=== PATIENT | male | born 1960 | race Caucasian/White ===

== ENCOUNTER 2019-09-11 13:50 | Outpatient (CLI) | payer OTHER ==
--- NOTE | 2019-09-11 14:25 | RAD ---
EXAM: Two views chest PROVIDED CLINICAL HISTORY: Cough and shortness of breath COMPARISON: None FINDINGS: Cardiac and mediastinal silhouette appears within normal limits. Lungs appear free of significant opa city. No pleural fluid or pneumothorax apparent. IMPRESSION: No evidence for an acute cardiopulmonary process.
== END 2019-09-11 13:51 | disposition home or self-care (01) ==
LOC: BICRAD 13:50
PROVIDERS: ATTEND Specialist
DX: R06.02 Shortness of breath (principal); R05 Cough
CPT/HCPCS: 71046